=== PATIENT | female | born 1995 | race Caucasian/White ===

== ENCOUNTER 2017-06-14 05:57 | Day surgery (SDC) | payer OTHER ==
[2017-06-14] MEDS: LR 1,000 ML IV (06:33)
[2017-06-14 06:42] LABS: CONTROL LINE UCG INT CTR LINE PRESENT; URINE PREG TEST NEGATIVE (NEGATIVE)
[2017-06-14] MEDS ORDERED: dexameTHASONE 4 MG/ML 1ML VIAL (J1100) IV (06:45)
[2017-06-14] MEDS ORDERED: fentaNYL 100 MCG/2 ML INJECTION (J3010) As Ordered (07:03)
[2017-06-14] MEDS ORDERED: MIDAZOLAM INJ 2 MG/2 ML VIAL (J2250) As Ordered (07:03)
[2017-06-14] MEDS ORDERED: CLINDAMYCIN 600 MG/50 ML PREMIX BAG As Ordered (07:15)
[2017-06-14] MEDS ORDERED: SCOPOLAMINE 1MG TRANSDERMAL PATCH As Ordered (07:18)
[2017-06-14] MEDS: CLINDAMYCIN 900 MG in APPROPRIATE DILUENT 1 EA IV (07:44)
[2017-06-14] MEDS ORDERED: PROPOFOL 200 MG/20 ML VIAL As Ordered (07:45)
[2017-06-14] MEDS ORDERED: LIDOCAINE 2% INJ 100 MG/5 ML SDV (FOR ANES.) As Ordered (07:45)
[2017-06-14] MEDS ORDERED: ePHEDrine SULFATE 25 MG/5 ML(5MG/ML) SYRINGE As Ordered (07:47)
[2017-06-14] MEDS ORDERED: GLYCOPYRROLATE INJ 0.2 MG/ML 2 ML VIAL As Ordered (07:47)
[2017-06-14] MEDS: LIDOCAINE 2% W/ EPINEPHRINE 1.7 ML DENTAL INJ As Ordered (07:50)
[2017-06-14] MEDS ORDERED: PHENYLephrine HCL 500 MCG/5 ML (100MCG/ML) SYRINGE (J2370) As Ordered (08:14)
[2017-06-14] MEDS ORDERED: PERCOCET 5MG/325MG TAB PO (09:45)
[2017-06-14] MEDS ORDERED: fentaNYL 100 MCG/2 ML INJECTION (J3010) IV (09:45)
[2017-06-14] MEDS ORDERED: LR 1,000 ML IV (09:45)
[2017-06-14] MEDS ORDERED: IBUPROFEN 100 MG/5 ML SUSP UDC DYE FREE As Ordered (10:09)
[2017-06-14] MEDS: ONDANSETRON 4MG/2ML VIAL (J2405) IV (10:20)
[2017-06-14] MEDS: IBUPROFEN 100 MG/5 ML SUSP UDC DYE FREE PO (10:20)
[2017-06-14] MEDS ORDERED: diphenhydrAMINE INJ 50MG/ML VIAL (J1200) As Ordered (10:39)
[2017-06-14] MEDS: diphenhydrAMINE INJ 50MG/ML VIAL (J1200) IV (10:50)
== END 2017-06-14 12:35 | disposition home or self-care (01) ==
LOC: M SDC 05:57
DX: K02.9 Dental caries, unspecified (principal); K01.1 Impacted teeth; Z88.0 Allergy status to penicillin; Z91.010 Allergy to peanuts
CPT/HCPCS: D7230